=== PATIENT | male | born 1945 | race Caucasian/White ===

== ENCOUNTER → 2020-05-24 | Outpatient (CLI) | payer OTHER ==
[~2020-05-24] MED LIST: GLUCOSAMINE HC500 MG; IBUPROFEN 800800 MG PO; NORCO 5-325 TA1 EACH PO; PROBIOTIC1 EAC1 PO; UNICOMPLEX M TA1 TA1
== END ==
LOC: CAT 08:13
PROVIDERS: ATTEND Family Medicine
DX: Z13.6 Encounter for screening for cardiovascular disorders (principal); I25.10 Atherosclerotic heart disease of native coronary artery without angina pectoris; E78.00 Pure hypercholesterolemia, unspecified

== ENCOUNTER → 2021-07-04 | Outpatient (CLI) | payer OTHER | LOC: CAT 13:07 | PROVIDERS: ATTEND Family Medicine | DX: G93.89 Other specified disorders of brain (principal); J32.2 Chronic ethmoidal sinusitis ==